=== PATIENT | female | born 1985 | race Asian ===

== ENCOUNTER 2016-07-11 14:07 | Emergency (ER) | payer BC ==
[2016-07-11 14:14] VITALS: BP 101/56; PULSE 84; RESP 20; TEMP 98.5
--- NOTE | 2016-07-11 14:32 | ED ---
General Adult HPI - General Chief complaint: Allergic Reaction Stated complaint: Poss Stroke Time Seen by Provider: 07/11/16 14:16 Source: patient, RN notes reviewed Mode of arrival: ambulatory Limitations: no limitations - History of Present Illness Initial comments: 31-year-old female presents to the emergency department with a chief complaint of right-sided facial weakness. Patient states last night she also. Depression chief complaint up and she very close her eye and she has minimal movement of the right side of face. Patient states that also feels different to the touch. Patient states that she was concerned so she came here to the emergency department. Patient denies any other symptoms she denies any falls traumas or injuries. She denies any headache. Patient denies any recent fever, chills, shortness of breath, chest pain, back pain, abdominal pain, nausea vomiting, numbness or tingling, dysuria or hematuria, constipation or diarrhea, headaches or visual changes, or any other current symptoms. - Related Data Home Medications Medication Instructions Recorded Confirmed Ibuprofen [Advil] 200 mg PO Q8HR PRN 07/11/16 07/11/16 Previous Rx's Medication Instructions Recorded Eye Lubricant Combination No.1 1 applic RIGHT EYE HS 7 Days 07/11/16 [Freshkote] predniSONE 40 mg PO BID 7 Days 07/11/16 valACYclovir HCL [Valacyclovir] 1,000 mg PO TID 7 Days 07/11/16 Allergies Allergy/AdvReac Type Severity Reaction Status Date / Time No Known Allergies Allergy Verified 11/08/13 22:03 Review of Systems ROS Statement: Those systems with pertinent positive or pertinent negative responses have been documented in the HPI. ROS Other: All systems not noted in ROS Statement are negative. Past Medical History Past Medical History: Thyroid Disorder Additional Past Medical History / Comment(s): recurrent UTI History of Any Multi-Drug Resistant Organisms: None Reported Past Surgical History: Section Past Psychological History: No Psychological Hx Reported Smoking Status: Never smoker Past Alcohol Use History: None Reported Past Drug Use History: None Reported General Exam Limitations: no limitations General appearance: alert, in no apparent distress Head exam: Present: atraumatic, normocephalic, normal inspection Eye exam: Present: normal appearance, PERRL, EOMI. Absent: scleral icterus, conjunctival injection, periorbital swelling ENT exam: Present: mucous membranes moist Respiratory exam: Present: normal lung sounds bilaterally. Absent: respiratory distress, wheezes, rales, rhonchi, stridor Cardiovascular Exam: Present: regular rate, normal rhythm, normal heart sounds. Absent: systolic murmur, diastolic murmur, rubs, gallop, clicks Neurological exam: Present: alert, oriented X3, normal gait, reflexes normal Expanded Neurological exam: Present: protecting the airway. Absent: inattentive, ataxia Patient oriented to: Present: person, place, time Speech: Present: fluid speech Cranial nerves: EOM's Intact: Normal, Gag Reflex: Normal, Tongue Deviation: Normal, Facial Palsy with Forehead Movement: Abnormal Right Ataxia: Absent: yes Cerebellar function: Finger to Nose: Normal, Heel to Rosario: Normal, Romberg: Normal Upper motor neuron: Pronator Drift: Normal Sensory exam: Upper Extremity Light Touch: Normal, Lower Extremity Light Touch: Normal Motor strength exam: RUE: 5, LUE: 5, RLE: 5, LLE: 5 Eye Response: (4) open spontaneously Motor Response: (6) obeys commands Verbal Response: (5) oriented Psychiatric exam: Present: normal affect, normal mood Skin exam: Present: warm, dry, intact, normal color. 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 We' ll start patient on steroids we will start her on a lubrication for her eye. We 'll also start her on antivirals. We discussed follow-up with her doctor and return parameters. Patient stated that she understood all questions have an answer. She will be discharged home. Disposition Clinical Impression: Qureshi's palsy Disposition: HOME SELF-CARE Condition: Stable Instructions: Qureshi Palsy (ED) Additional Instructions: Please use medication as discussed. Please follow up with family doctor if symptoms have not improved over the next two days. Please return to the emergency room if your symptoms increase or worsen or for any other concerns. Prescriptions: Eye Lubricant Combination No.1 [Freshkote] 1 applic RIGHT EYE HS 7 Days predniSONE 40 mg PO BID 7 Days valACYclovir HCL [Valacyclovir] 1,000 mg PO TID 7 Days Referrals: Edinson Yang MD [Primary Care Provider] - 1-2 days Time of Disposition: 14:32
== END 2016-07-11 14:59 | disposition home or self-care (01) ==
LOC: EC 14:07
DX: G51.0 Bell's palsy (principal)
CPT/HCPCS: 99283

== ENCOUNTER → 2016-08-23 | Outpatient (CLI) | payer BC ==
--- NOTE | 2016-08-23 08:00 | US ---
EXAMINATION TYPE: US transvaginal DATE OF EXAM: 08/23/2016 7:46 AM COMPARISON: US 2016 CLINICAL HISTORY: Pelvic Pain R10.2. C section delivery, TECHNIQUE: Transvaginal (TV)as patient's bladder not full Date of LMP: 07/17/2016 EXAM MEASUREMENTS: Uterus: 10.8 x 5.2 x 5.1 cm Endometrial Stripe: 1.2 cm Right Ovary: 3.7 x 2.8 x 2.6 cm Left Ovary: 2.5 x 2.8 x 1.4 cm 1. Uterus: Retroverted; multiple Nabothian Cysts with largest = 0.6 x 0.5 x 0.5cm 2. Endometrium: thickness wnl for day 38LMP 3. Right Ovary: multiple follicles with largest as involuting cyst = 1.6 x 1.5 x 1.3cm 4. Left Ovary: multiple small follicles Spectral, color and waveform Doppler imaging shows good arterial and venous flow within the ovaries ; there is no evidence for ovarian torsion. 5. Bilateral Adnexa: wnl 6. Posterior cul-de-sac: small amount of free fluid is noted. IMPRESSION: 1. Cervical nabothian cysts. 2. Bilateral ovarian follicles as noted above.
[2016-08-23 09:22] LABS: HCG,Quantitative Serum <2.4 mIU/mL
== END | disposition home or self-care (01) ==
LOC: RADUSWWP 07:10
PROVIDERS: ATTEND Obstetrics & Gynecology
DX: N88.8 Other specified noninflammatory disorders of cervix uteri (principal); N92.6 Irregular menstruation, unspecified
CPT/HCPCS: 36415; 76830; 84439; 84443; 84702

== ENCOUNTER → 2017-04-22 | Outpatient (CLI) | payer BC ==
[2017-04-22 09:11] LABS: Albumin 4.2 g/dL (3.5-5.0); Total Protein 7.2 g/dL (6.3-8.2)
[2017-04-22 16:29] LABS: Shrimp IgE <0.10 kU/L; Walnut IgE (Food) <0.10 kU/L
[2017-04-26 14:30] LABS: Beef IgE <0.35 kU/L (<0.35); Beef IgE Class CLASS 0; Crab IgE <0.35 kU/L (<0.35); Crab IgE Class CLASS 0; Lettuce IgE Class CLASS 0; Pork IgE Class CLASS 0
[2017-04-26 14:31] LABS: Apple IgE Class CLASS 0; Oat IgE Class CLASS 0; Onion IgE <0.35 kU/L (<0.35); Onion IgE Class CLASS 0; Salmon IgE <0.35 kU/L (<0.35); Salmon IgE Class CLASS 0; Yeast Bakers/Brew IgE <0.35 kU/L (<0.35)
[2017-04-26 14:32] LABS: Celery IgE <0.35 kU/L (<0.35); Celery IgE Class CLASS 0; Chicken IgE Class CLASS 0; Chocolate IgE Class CLASS 0; Egg Yolk IgE Class CLASS 0; Gluten IgE Class CLASS 0; Lobster IgE <0.35 kU/L (<0.35); Lobster IgE Class CLASS 0
[2017-04-26 14:33] LABS: Avocado Class CLASS 0; Banana IgE Class CLASS 0; Coffee IgE <0.35 kU/L (<0.35); Coffee IgE Class CLASS 0; Cow's Milk IgE Class CLASS 0; Egg White IgE <0.35 kU/L (<0.35); Hazelnut IgE <0.35 kU/L (<0.35); Hazelnut IgE Class CLASS 0; Kiwi IgE <0.35 kU/L (<0.35); Peanut IgE <0.35 kU/L (<0.35); Potato IgE <0.35 kU/L (<0.35); Potato IgE Class CLASS 0; Soybean IgE <0.35 kU/L (<0.35); Tea IgE <0.35 kU/L (<0.35)
== END | disposition home or self-care (01) ==
LOC: LABWHC1 08:14
PROVIDERS: ATTEND Nurse Practitioner Family
DX: J30.89 Other allergic rhinitis (principal); R10.9 Unspecified abdominal pain; R79.9 Abnormal finding of blood chemistry, unspecified
CPT/HCPCS: 36415; 82040; 84155; 86003

== ENCOUNTER → 2018-02-27 | Outpatient (CLI) | payer BC ==
--- NOTE | 2018-02-27 10:07 | MM ---
Reason for exam: screening (asymptomatic). Baseline mammogram. History: Retro-pectoral silicone gel implants, 2014. Physical Findings: Nurse did not find any significant physical abnormalities on exam. MG 3D Screen Mammo Imp/Cad Bilateral CC, MLO, and ID view(s) were taken. The breast tissue is heterogeneously dense. This may lower the sensitivity of mammography. No suspicious calcifications are seen. There is no discrete abnormality. Bilateral implants are intact. These results were verbally communicated with the patient and result sheet given to the patient on 02/27/18. ASSESSMENT: Negative, BI-RAD 1 RECOMMENDATION: Routine screening mammogram of both breasts at age 38.
== END | disposition home or self-care (01) ==
LOC: RADMAMWWP 07:36
PROVIDERS: ATTEND Obstetrics & Gynecology
DX: Z12.31 Encounter for screening mammogram for malignant neoplasm of breast (principal)
CPT/HCPCS: 77063; 77067